=== PATIENT | male | born 1965 | race African-American/Black ===

== ENCOUNTER 2020-01-08 05:39 | Emergency (ER) | payer MEDICAID ==
[~2020-01-08] VITALS: Ht 177.8 cm; Wt 80.0 kg
[2020-01-08] MEDS ORDERED: ACETAMINOPHEN WITH CODEINE 300/30MG TABLET PO ONE (06:30)
[2020-01-08 09:17] VITALS: BP 122/76
== END 2020-01-08 09:18 | disposition home or self-care (01) ==
LOC: ER 06:20
DX: S22.32XA Fracture of one rib, left side, initial encounter for closed fracture (principal); Y00.XXXA Assault by blunt object, initial encounter; Y93.89 Activity, other specified; Y92.488 Other paved roadways as the place of occurrence of the external cause
CPT/HCPCS: 71101; 74176; 99284